=== PATIENT | male | born 1950 | race Caucasian/White ===

== ENCOUNTER → 2022-05-02 | Outpatient (CLI) | payer MEDICARE ==
[~2022-05-02] MED LIST: BACLOFEN10 MG PO; DESYREL 50 MG T50 MG PO; ELIQUIS2.5 MG PO; FAMOTIDINE20 MG PO; GLUCOPHAGE XR500 M1 PO; HYDROXYZINE PAM25 MG PO; JANUVIA100 MG PO; NORCO 7.5-3251 EACH PO; ONE DAILY MULT1 EAC1 PO; PREVACID 30 MG30 MG PO; TRAVOPROST2.5 ML OU; TYLENOL ARTHRITIS PO; TYLENOL EXTRA500 MG PO; ZOCOR 40 MG TAB40 MG PO
== END ==
LOC: US 13:41
DX: I70.212 Atherosclerosis of native arteries of extremities with intermittent claudication, left leg (principal)
CPT/HCPCS: 93926